=== PATIENT | male | born 1965 | race Caucasian/White ===

== ENCOUNTER 2018-05-07 09:42 | Emergency (ER) | payer BC ==
--- NOTE | 2018-05-07 10:50 | EDPHY ---
H & P Stated Complaint: LAST MONDAY SWELLING UNDER TONGUE/TODAY AWAKENED WITH L CHEEK/ TONGUE NUMBNE Time Seen by Provider: 05/07/18 10:30 HPI/ROS: CHIEF COMPLAINT: Tingling left-sided mouth and left 4th and 5th digits HISTORY OF PRESENT ILLNESS: 52-year-old previously healthy male presents with paresthesias. He awoke at 7:00 a.m. with tingling inside the left side of mouth and tongue. He got out of bed and then noticed tingling of his 4th and 5th digits on the palmar aspect. Sx are mild. No other associated symptoms, numbness or weakness. No alleviating or aggravating factors. No prior similar symptoms. No recent head injury and no headache. REVIEW OF SYSTEMS: complete 10 point ROS reviewed and is negative except for the noted elements in the HPI - Personal History Current Tetanus Diphtheria and Acellular Pertussis (TDAP): Yes - Medical/Surgical History Hx Asthma: No Hx Chronic Respiratory Disease: No Hx Diabetes: No Hx Cardiac Disease: No Hx Renal Disease: No Hx Cirrhosis: No Hx Alcoholism: No Hx HIV/AIDS: No Hx Splenectomy or Spleen Trauma: No Other PMH: DENIES - Social History Smoking Status: Never smoked Alcohol Use: Sober Drug Use: None Additional Social History: - Physical Exam Exam: General Appearance: Alert, pleasant Eyes: Pupils equal and round, no conjunctival pallor or injection ENT, Mouth: Mucous membranes moist, subjective decreased sensation left vehicle mucosa and left side of tongue, no oral lesions Neck: Normal inspection Respiratory: Lungs are clear to auscultation Cardiovascular: Regular rate and rhythm Gastrointestinal: Abdomen is soft and nontender Neurological: A&O, cranial nerves 2-12 intact, motor 5/5 throughout, sensory, decreased sensation to light touch on the palmar aspect of the 4th and 5th digit , normal gait Skin: Warm and dry, no rash Extremities: Nontender, no pedal edema Psychiatric: Mood and affect normal Constitutional: Initial Vital Signs Temperature (C) 36.5 C 05/07/18 09:43 Heart Rate 51 L 05/07/18 09:43 Respiratory Rate 18 05/07/18 09:43 Blood Pressure 150/92 H 05/07/18 09:43 O2 Sat (%) 98 05/07/18 09:43 O2 Delivery Mode Room Air Allergies/Adverse Reactions: No Known Allergies Allergy (Unverified 05/07/18 09:43) Home Medications: Medication Instructions Recorded NK [No Known Home Meds] 05/07/18 Medical Decision Making - Diagnostics Imaging Results: Head CT 05/07/18 00:00 Impression: There is no acute intracranial abnormality identified on this unenhanced CT evaluation. If there is further clinical concern regarding the patient's symptoms, MR imaging is suggested, if not otherwise contraindicated. Findings were discussed with WILBERTO STEPHEN MD at 13:32, on 05/07/2018. A CTA of the head and neck has also been requested, and will be reported separately. Head CTA 05/07/18 10:45 Impression: 1. There is no hemodynamically significant ICA stenosis. 2. Patent vertebral arteries. CT ANGIOGRAPHY OF THE BRAIN: The major vessels of the [place] are well visualized, and there is no aneurysm, vascular malformation/beading, flow- limiting stenosis, or acute occlusion identified. The distal cervical, petrous, cavernous, and supraclinoid portions of the internal carotid arteries are patent. The A1 and A2 segments, anterior communicating artery, and the M1, M2, and M3 trifurcation vessels are patent. With regards to the posterior circulation, the distal vertebral arteries are patent. The posterior inferior cerebellar arteries, vertebrobasilar confluence, right anterior inferior cerebellar artery, basilar artery, superior cerebellar arteries, and the posterior cerebral arteries are patent. 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 The left posterior communicating artery is patent, and provides a " circulatory variant" inflow into the left [employer]. 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 The dural venous sinuses are patent. Impression: Negative CT angiogram of the brain. CT Source Data: The lung apices are notable only for some minimal pleural/ parenchymal fibrosis. The visualized superior mediastinal structures are unremarkable. There appears to have been a partial left thyroidectomy. The visualized prevertebral soft tissues are otherwise unremarkable. There is moderate degenerative disk space narrowing at C6-C7 where there is a right paracentral dorsal disk osteophyte complex resulting in slight effacement of the right ventrolateral thecal sac. This trace biphasic cervical thoracic scoliosis. There is some facet degenerative hypertrophy at multiple levels. Measurement of carotid stenosis is based on the residual internal carotid diameter with [place] Symptomatic Carotid Endarterectomy Trial (NASCET) based stenosis levels. Findings were discussed with WILBERTO STEPHEN MD at 14:03, on 05/07/2018. Neck CTA 05/07/18 10:45 Impression: 1. There is no hemodynamically significant ICA stenosis. 2. Patent vertebral arteries. CT ANGIOGRAPHY OF THE BRAIN: The major vessels of the [place] are well visualized, and there is no aneurysm, vascular malformation/beading, flow- limiting stenosis, or acute occlusion identified. The distal cervical, petrous, cavernous, and supraclinoid portions of the internal carotid arteries are patent. The A1 and A2 segments, anterior communicating artery, and the M1, M2, and M3 trifurcation vessels are patent. With regards to the posterior circulation, the distal vertebral arteries are patent. The posterior inferior cerebellar arteries, vertebrobasilar confluence, right anterior inferior cerebellar artery, basilar artery, superior cerebellar arteries, and the posterior cerebral arteries are patent. 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 The left posterior communicating artery is patent, and provides a " circulatory variant" inflow into the left [employer]. 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 The dural venous sinuses are patent. Impression: Negative CT angiogram of the brain. CT Source Data: The lung apices are notable only for some minimal pleural/ parenchymal fibrosis. The visualized superior mediastinal structures are unremarkable. There appears to have been a partial left thyroidectomy. The visualized prevertebral soft tissues are otherwise unremarkable. There is moderate degenerative disk space narrowing at C6-C7 where there is a right paracentral dorsal disk osteophyte complex resulting in slight effacement of the right ventrolateral thecal sac. This trace biphasic cervical thoracic scoliosis. There is some facet degenerative hypertrophy at multiple levels. Measurement of carotid stenosis is based on the residual internal carotid diameter with [place] Symptomatic Carotid Endarterectomy Trial (NASCET) based stenosis levels. Findings were discussed with WILBERTO STEPHEN MD at 14:03, on 05/07/2018. Imaging: Discussed imaging studies w/ train caller Radiologist ED Course/Re-evaluation: This patient presents with left-sided paresthesias. NIH stroke score is 0. Will proceed with evaluation for TIA/CVA or other etiology of symptoms. CT/CTA of the head and neck ordered. CT is unremarkable. Results discussed with the patient. He continues to have paresthesias, no change fall in the ED. Will proceed with MRI. If MRI is unremarkable, will discharge home with outpatient follow-up. MRI is unremarkable, results discussed with the patient. He continues to have paresthesias. I feel that he is safe and stable for discharge home. Will follow up with Dr. Dc in the office. Warning signs discussed. Differential Diagnosis: Altered mental status including but not limited to hypoglycemia, infectious process, electrolyte abnormality, head injury, CVA, tumor, Maher's palsy. - Data Points Laboratory Results: Laboratory Results 05/07/18 12:00 05/07/18 12:00 Point of Care Test Results: Chemistry 05/07/18 12:10 POC Sodium 142 mEq/L mEq/L (135-145) POC Potassium 4.2 mEq/L mEq/L (3.3-5.0) POC Chloride 103 mEq/L mEq/L (97-110) POC BUN 19 mg/dL mg/dL (7-23) POC Creatinine 1.0 mg/dL mg/dL (0.7-1.3) POC Glucose 98 mg/dL mg/dL (70-100) ISTAT H&H 05/07/18 12:10 POC Hgb 12.9 gm/dL L gm/dL (13.7-17.5) POC Hct 38 % L % (40-51) Departure - Departure Disposition: Home, Routine, Self-Care Clinical Impression: Paresthesia Condition: Good Instructions: Paresthesia (ED) Additional Instructions: Return for worsening symptoms or any concerns. Take an aspirin daily. Referrals: Odin Dc MD [Medical Doctor] - As per Instructions
[2018-05-07] MEDS ORDERED: IOPAMIDOL (ISOVUE 370) 100 ML BTL IV ONE (12:09)
[2018-05-07 12:57] LABS: PLATELET COUNT 190 10^3/uL (150-400)
[2018-05-07 15:34] VITALS: BP 121/80
== END 2018-05-07 15:34 | disposition home or self-care (01) ==
DX: R20.2 Paresthesia of skin (principal)
CPT/HCPCS: 82435-PO; 82565-PO; 82947-PO; 84132-PO; 84295-PO; 84520-PO; 85014-ER; Q9967